=== PATIENT | female | born 1960 | race Caucasian/White ===

== ENCOUNTER 2018-10-20 08:00 | Outpatient (CLI) | payer BC, OTHER | END 2018-10-20 23:59 | disposition home or self-care (01) | LOC: LAB.R 08:00 | PROVIDERS: ATTEND Physician Assistant | DX: R31.9 Hematuria, unspecified (principal) | CPT/HCPCS: 87086; 87181 ==

== ENCOUNTER 2019-06-14 09:00 | Outpatient (CLI) | payer OTHER ==
[2019-06-14 18:57] LABS: ALBUMIN 4.1 g/dL (3.2-5.5); ALBUMIN/GLOBULIN RATIO 1.2 (1.0-2.2); ALKALINE PHOSPHATASE 77 IU/L (42-121); ALT ALANINE AMINOTRANSFERASE 20 IU/L (10-60); AST ASPARTATE AMINOTRANSFERASE 19 IU/L (10-42); BILIRUBIN,TOTAL 0.5 mg/dL (0.2-1.0); BUN - BLOOD UREA NITROGEN 14 mg/dL (6-20); CALCIUM 9.3 mg/dL (8.5-10.3); CARBON DIOXIDE - CO2 23 mmol/L (21-32); CHLORIDE 105 mmol/L (101-111); CHOL/HDL RATIO 4.4 (<4.4); CHOLESTEROL 209 mg/dL; CREATININE 0.8 mg/dL (0.4-1.0); GFR - MDRD 74 (>89); GLUCOSE 98 mg/dL (70-100); HDL CHOLESTEROL 48 mg/dL; LDL CHOLESTEROL,CALCULATED 139 mg/dL; LDL/HDL RATIO 2.9 (<4.4); SODIUM 137 mmol/L (135-145); TOTAL PROTEIN 7.4 g/dL (6.7-8.2); VLDL CHOLESTEROL 22 mg/dL
== END 2019-06-14 23:59 | disposition home or self-care (01) ==
LOC: LAB.WCP 09:00
PROVIDERS: ATTEND Family Medicine
DX: R03.0 Elevated blood-pressure reading, without diagnosis of hypertension (principal)
CPT/HCPCS: 36415; 80053; 80061; 83721

== ENCOUNTER 2019-07-22 07:00 | Outpatient (CLI) | payer BC | END 2019-07-22 23:59 | disposition home or self-care (01) | LOC: LAB.R 07:00 | PROVIDERS: ATTEND Family Medicine | DX: Z12.11 Encounter for screening for malignant neoplasm of colon (principal) | CPT/HCPCS: 82274 ==

== ENCOUNTER 2019-08-26 08:44 | Outpatient (CLI) | payer BC ==
--- NOTE | 2019-09-06 15:13 | Mammography Report ---
Reason: ROUTINE MAMMO Procedure Date: 08/26/2019 Accession Number: [id number] / [id number] Procedure: KEREN - Screening Mammo w/Jamal CPT Code: Final Report FULL RESULT: EXAM: Screening Mammo w/Jamal DATE: 08/26/2019 9:30 AM CLINICAL HISTORY: Screening encounter. History of late childbearing. TECHNIQUE: (B) - Bilateral CC and MLO views were obtained. COMPARISON: 07/08/2016 through 10/22/2010. PARENCHYMAL PATTERN: (A) - The breast(s) demonstrate(s) scattered fibroglandular densities. FINDINGS: There are no suspicious masses, calcifications, or areas of distortion. IMPRESSION: Negative examination. BI-RADS category 1. RECOMMENDATION: (ANNUAL) - Recommend routine annual screening mammography. BI-RADS CATEGORY: (1) - Negative. STANDARD QUALIFYING STATEMENTS: 1. This examination was not reviewed with the aid of Computer-Aided Detection (CAD). 2. A negative or benign imaging report should not preclude biopsy if clinically suspicious findings are present. 3. Dense breasts may obscure an underlying neoplasm. 4. This examination was reviewed with the aid of 3D breast imaging (tomosynthesis).
== END 2019-08-26 08:45 | disposition home or self-care (01) ==
LOC: DI 08:44
DX: Z12.31 Encounter for screening mammogram for malignant neoplasm of breast (principal)
CPT/HCPCS: 77063; 77067

== ENCOUNTER 2020-03-03 22:37 | Emergency (ER) | payer BC ==
--- NOTE | 2020-03-04 00:38 | ED Physician Documentation ---
History of Present Illness - Stated complaint Stated Complaint: LT SHOULDER/ARM PX - Chief complaint Chief Complaint: Trauma Ext - History obtained from History obtained from: Patient - Additonal information Additional information: Patient is a 59-year-old female who is right-hand dominant she slipped and fell on her left shoulder she denies any loss of consciousness or taking anticoagulants or antiplatelets or blood thinners denies any other complaints. Review of Systems Constitutional: reports: Reviewed and negative Eyes: reports: Reviewed and negative Ears: reports: Reviewed and negative Nose: reports: Reviewed and negative Throat: reports: Reviewed and negative Cardiac: reports: Reviewed and negative Respiratory: reports: Reviewed and negative GI: reports: Reviewed and negative : reports: Reviewed and negative Skin: reports: Reviewed and negative Musculoskeletal: reports: Extremity pain Neurologic: reports: Reviewed and negative Psychiatric: reports: Reviewed and negative Endocrine: reports: Reviewed and negative Immunocompromised: reports: Reviewed and negative PD PAST MEDICAL HISTORY - Allergies Allergies/Adverse Reactions: Allergies Allergy/AdvReac Type Severity Reaction Status Date / Time No Known Drug Allergies Allergy Verified 03/03/20 22:54 PD ED PE NORMAL - Vitals Vital signs reviewed: Yes - General General: Alert and oriented X 3, No acute distress - HEENT HEENT: PERRL - Neck Neck: Supple, no meningeal sign - Cardiac Cardiac: RRR, No murmur - Respiratory Respiratory: Clear bilaterally - Abdomen Abdomen: Normal bowel sounds, Soft, Non tender, Non distended - Derm Derm: Normal color, Warm and dry, No rash - Extremities Extremities: No deformity, No tenderness to palpate, Normal ROM s pain, No edema, No calf tenderness / cord - Neuro Neuro: Alert and oriented X 3, new account interviewer 2-12 intact, No motor deficit, No sensory deficit, Normal speech - Psych Psych: Normal mood, Normal affect - Free text exam Free text exam: Left upper extremity is without deformity there is no obvious sulcus sign of the left shoulder radian, median, ulnar motor and sensory exam are intact compartments are soft sensations intact light touch. Strength is 5 out of 5 in bilateral upper extremities. Full range of motion on passive and active range of motion of the left shoulder in flexion extension internal and external rotation and abduction and abduction sensations intact over the axilla able to flex and extend at the elbow without complications. There is no swelling no ecchymosis and no gross deformity neurovascular intact compartments soft radial pulses are 2+ and symmetric. Results - Vitals Vitals: Vital Signs - 24 hr 03/03/20 03/04/20 22:51 01:02 Temperature 36.4 C L Heart Rate 95 98 Respiratory 18 18 Rate Blood Pressure 156/100 H 146/86 H O2 Saturation 95 95 Oxygen O2 Source Room air PD MEDICAL DECISION MAKING - ED course Complexity details: re-evaluated patient, considered differential, d/w patient, d/w family ED course: Patient fell and landed on her left shoulder I did offer to order x-rays however she like to be discharged home. Her exam shows no signs of fracture or dislocation. She should ice at home take Tylenol or ibuprofen as needed and follow-up with her primary care provider on Thursday or return the emergency department any concerns. Departure - Departure Disposition: 01 Home, Self Care Clinical Impression: Sprain of left shoulder Qualifiers: Encounter type: initial encounter Shoulder sprain type: unspecified sprain Qualified Code(s): S43.402A - Unspecified sprain of left shoulder joint, initial encounter Condition: Stable Instructions: ED Sprain Shoulder Follow-Up: Ganesh Oh DO [Primary Care Provider] - 03/05/20 Comments: rest, ice and take ibuprofen as needed. Follow-up with your primary care provider on Thursday for recheck. Discharge Date/Time: 03/04/20 01:03
[2020-03-04 01:03] VITALS: BP 146/86
== END 2020-03-04 01:03 | disposition home or self-care (01) ==
LOC: ED 22:37
DX: S43.402A Unspecified sprain of left shoulder joint, initial encounter (principal); W01.0XXA Fall on same level from slipping, tripping and stumbling without subsequent striking against object, initial encounter
CPT/HCPCS: 99281; 99282

== ENCOUNTER 2023-09-16 11:06 | Outpatient (CLI) | payer OTHER ==
[2023-09-16 11:21] LABS: BASOPHILS # (AUTO) 0.1 10^3/uL (0.0-0.1); BASOPHILS % (AUTO) 0.8 %; EOSINOPHILS # (AUTO) 0.2 10^3/uL (0.0-0.7); EOSINOPHILS % (AUTO) 2.9 %; HCT - HEMATOCRIT 47.8 % (37.0-47.0); LYMPHOCYTES # (AUTO) 2.3 10^3/uL (1.5-3.5); LYMPHOCYTES % (AUTO) 30.2 %; MEAN CORPUSCULAR HGB CONC 31.4 g/dL (32.0-36.0); MEAN CORPUSCULAR VOLUME 79.8 fL (81.0-99.0); MONOCYTES # (AUTO) 0.5 10^3/uL (0.0-1.0); MONOCYTES % (AUTO) 6.1 %; NEUTROPHILS # (AUTO) 4.5 10^3/uL (1.5-6.6); NEUTROPHILS % (AUTO) 59.7 %; PLT - PLATELET COUNT 296 10^3/uL (130-450); RED BLOOD COUNT 5.99 10^6/uL (4.20-5.40); RED CELL DISTRIBUTION WIDTH 14.4 % (12.0-15.0); WHITE BLOOD COUNT 7.6 x10^3/uL (4.8-10.8)
[2023-09-16 11:29] LABS: ESTIMATED AVERAGE GLUCOSE 131 mg/dL (70-100); HEMOGLOBIN A1c% 6.2 % (4.27-6.07)
[2023-09-16 11:57] LABS: THYROID STIMULATING HORMONE 1.19 uIU/mL (0.34-5.60)
[2023-09-16 15:59] LABS: ALBUMIN 4.3 g/dL (3.2-5.5); ALBUMIN/GLOBULIN RATIO 1.2 (1.0-2.2); ALKALINE PHOSPHATASE 88 IU/L (42-121); ALT ALANINE AMINOTRANSFERASE 15 IU/L (10-60); AST ASPARTATE AMINOTRANSFERASE 14 IU/L (10-42); BILIRUBIN,TOTAL 0.3 mg/dL (0.2-1.0); BUN - BLOOD UREA NITROGEN 13 mg/dL (6-20); CALCIUM 9.9 mg/dL (8.5-10.3); CARBON DIOXIDE - CO2 24 mmol/L (21-32); CHLORIDE 105 mmol/L (101-111); CHOL/HDL RATIO 3.6 (<4.4); CHOLESTEROL 203 mg/dL; CREATININE 0.8 mg/dL (0.6-1.3); GFR - MDRD 73 (>89); GLUCOSE 99 mg/dL (74-104); HDL CHOLESTEROL 56 mg/dL; LDL CHOLESTEROL,CALCULATED 124 mg/dL; LDL/HDL RATIO 2.2 (<4.4); POTASSIUM 4.2 mmol/L (3.5-4.5); SODIUM 138 mmol/L (135-145); TOTAL PROTEIN 7.8 g/dL (6.4-8.9); TRIGLYCERIDES 116 mg/dL (48-352); VLDL CHOLESTEROL 23 mg/dL
== END 2023-09-16 11:07 | disposition home or self-care (01) ==
LOC: LAB 11:06
PROVIDERS: ATTEND Physician Assistant Medical
DX: Z13.9 Encounter for screening, unspecified (principal)
CPT/HCPCS: 36415; 80053; 80061; 83036; 83721; 84443; 85025

== ENCOUNTER 2023-10-02 09:30 | Outpatient (CLI) | payer OTHER ==
--- NOTE | 2023-10-02 10:56 | CT Report ---
PROCEDURE: Lung Cancer Screen INDICATIONS: SMOKER TECHNIQUE: A CT scan of the chest was performed. Intravenous contrast media was not administered. Images were re corded and evaluated at appropriate window settings. Reformats: axial MIP of the chest, coronal and s agittal. For radiation dose reduction, the following was used: automated exposure control, adjustment of mA and/or kV according to patient size. COMPARISON: None. FINDINGS: Image quality: Diagnostic, allowing for low radiation dose Lungs and pleura:Baseline lung cancer screening. Basal scarring and atelectasis is seen. No suspiciou s pulmonary nodules over 6 mm. Linear opacity is seen in the right upper lobe (/) measuring 9 x 3 mm. This may be within a small bronchus. Other micronodules under 3 mm and granulomas are seen. Mediastinum, heart, and esophagus: Normal heart size. No pathologic lymph nodes by size criteria. Chest wall and thyroid: Enlarged thyroid. Chest wall is unremarkable. Upper abdomen: No gross abnormality on this low-dose noncontrast images. Bones: No acute or suspicious osseous finding. IMPRESSION: Lung RADS 4A: Recommend 3 month follow-up low-dose CT. There is a possible linear opacity in the righ t lower lobe that may be within a small bronchus measuring 9 x 3 mm (8/93). Overall suspicion is low. Enlarged thyroid. Consider nonemergent sonographic follow-up. Reviewed by: Brock Fraser MD on 10/02/2023 10:55 AM PDT Approved by: Brock Fraser MD on 10/02/2023 10:55 AM PDT Station ID: [id number]
== END 2023-10-02 09:31 | disposition home or self-care (01) ==
LOC: DI 09:30
PROVIDERS: ATTEND Physician Assistant Medical
DX: Z12.2 Encounter for screening for malignant neoplasm of respiratory organs (principal); F17.210 Nicotine dependence, cigarettes, uncomplicated; E04.9 Nontoxic goiter, unspecified

== ENCOUNTER 2023-10-20 14:04 | Outpatient (CLI) | payer OTHER ==
--- NOTE | 2023-10-21 10:12 | Mammography Report ---
BILATERAL DIGITAL SCREENING MAMMOGRAM 3D/2D: 10/20/2023 CLINICAL: Routine screening. Comparison is made to exams dated: 10/24/2021 mammogram and 08/26/2019 mammogram - [facility]. Both breasts are almost entirely fatty (category a/<25% glandular tissue). No significant masses, calcifications, or other findings are seen in either breast. There has been no significant interval change. IMPRESSION: NEGATIVE There is no mammographic evidence of malignancy. A 1 year screening mammogram is recommended. Based on the Tyrer Cuzick model (a risk assessment model) the patient's lifetime risk is 5.2% and her 10 year risk is 2.2%. According to the ACR, ACS, and NCCN guidelines, an annual breast MRI exam chris g with mammogram is recommended if the patient's lifetime risk is 20% or greater. This exam was interpreted at Station ID: [id number]. NOTE: For mammograms, a report in lay terms will be sent to the patient. Approximately 15% of breast malignancies will not be visualized mammographically. In the management of a palpable breast mass, a negative mammogram must not discourage biopsy of a clinically suspicious lesion. Electronically Signed By: Kin fonseca/bon:10/20/2023 15:26:23 letter sent: No_Letter ACR BI-RADS Category 1: Negative 3341F PARENCHYMAL PATTERN: (F) - The breast(s) demonstrate(s) diffuse fatty replacement. BI-RADS CATEGORY: (1) - 1 RECOMMENDATION: (ANNUAL) - Recommend routine annual screening mammography. [id number] 1 year screening LATERALITY: (B)
== END 2023-10-20 14:05 | disposition home or self-care (01) ==
LOC: DI 14:04
PROVIDERS: ATTEND Physician Assistant Medical
DX: Z12.31 Encounter for screening mammogram for malignant neoplasm of breast (principal)

== ENCOUNTER 2023-10-22 11:03 | Outpatient (CLI) | payer OTHER ==
--- NOTE | 2023-10-22 11:38 | Ultrasound Report ---
PROCEDURE: Soft Tissue Head or Neck INDICATIONS: ENLARGED THYROID TECHNIQUE: Real-time scanning was performed of the thyroid gland, with image documentation. COMPARISON: None FINDINGS: Right: Thyroid lobe measures 5.8 x 3.5 x 2.4 cm, and is homogeneous in echotexture. Left: Thyroid lobe measures 6.0 x 3.2 x 3.6 cm, and is homogenous in echotexture. Isthmus: 0.9 cm thick. Nodule number: One Location: Right inferior Size: 2.3 x 2.5 x 2.3 cm. Composition: Solid (2 points). Echogenicity: Hyperechoic (1 point). Shape: wider than tall (0 points). Margins: Smooth (0 points). Echogenic foci: None (0 points). Total points: 3 ACR TI-RADS category: TI-RADS 3: Mildly suspicious. Nodule number: Two Location: Left inferior Size: 2.9 x 2.8 x 3.1 cm. Composition: Solid (2 points). Echogenicity: Hyperechoic (1 point). Shape: wider than tall (0 points). Margins: Smooth (0 points). Echogenic foci: None (0 points). Total points: 3 ACR TI-RADS category: TI-RADS 3: Mildly suspicious. Multiple additional subcentimeter nodules are present. IMPRESSION: Multinodular goiter with the largest nodules described above. Fine-needle aspiration for both of these nodules is recommended. ACR TI-RADS definitions and recommendations: TI-RADS 1 (benign): 0 points. FNA not needed. TI-RADS 2 (not suspicious): 2 points. FNA not needed. TI-RADS 3 (mildly suspicious): 3 points. "FNA if 2.5 cm or larger, follow up if 1.5 cm or larger (at 1, 3, and 5 years). TI-RADS 4 (moderately suspicious): 4-6 points. "FNA if 1.5 cm or larger, follow up if 1 cm or larger (at 1, 2, 3, and 5 years). TI-RADS 5 (highly suspicious): 7 points or more. "FNA if 1 cm or larger, follow up if 0.5 cm or larger (every year for 5 years). Reviewed by: Jefferson Logan MD on 10/22/2023 11:37 AM PDT Approved by: Jefferson Logan MD on 10/22/2023 11:37 AM PDT Station ID: [id number]
== END 2023-10-22 11:04 | disposition home or self-care (01) ==
LOC: DI 11:03
PROVIDERS: ATTEND Physician Assistant Medical
DX: E04.2 Nontoxic multinodular goiter (principal)

== ENCOUNTER 2023-11-12 09:47 | Outpatient (CLI) | payer OTHER ==
[~2023-11-12 09:47] MED LIST: LIDOCAINE-MPF 1% 5 ML VIAL ONE
[2023-11-12] MEDS: LIDOCAINE-MPF 1% 5 ML VIAL TD ONE (11:19)
--- NOTE | 2023-11-12 14:22 | Ultrasound Report ---
PROCEDURE: FNA Bx w/US Gdn 1st Les INDICATIONS: THYROID NODULE TECHNIQUE: The indications, alternatives, benefits, risks, and complications of the procedure were explained to the patient. Written informed consent was obtained and placed in the chart. The area of interest wa s examined sonographically and a site was chosen for ultrasound guided percutaneous sampling. Notably, the nodule as identified nodule #1 In the right thyroid could not be definitely discerned fr om rest of the multinodular thyroid; this nodule was not seen as described on ultrasound dated 10/22/19 24. Furthermore, multiple nodules were seen on the right, but not the 1 reaching 2.5 cm in size as de scribed on prior ultrasound dated 10/22/2023. Fine needle aspiration of this nodule could not be perfor med. Patient was explained that we could not find or needle aspirate this nodule as described on yolie or ultrasound dated 10/22/2023; patient agrees to go ahead with FNA of the left thyroid nodule. The skin was prepared and draped in the usual fashion, and anesthetized with 1% lidocaine infiltrated from the skin down to the lesion. Multiple passes were then performed, with contents emptied into a n appropriate pathology specimen container. A bandage was applied to the area of access at [facility] n of the study. COMPARISON: None. FINDINGS: Location(s) of lesion(s) sampled: Left thyroid nodule # 2. As described on prior ultrasound 10/22/2023 [place]: 25 gauge hypodermic needles. Number of passes: 6 Medications: 1% lidocaine for local anaesthesia. Complications: None. IMPRESSION: Successful ultrasound-guided left thyroid nodule fine needle aspiration, with cytology results kandy osorio Note: Right thyroid nodule as described on prior FNA dated 10/22/2023 was not sampled as noted above Reviewed by: Santiago Mason MD on 11/12/2023 2:20 PM PDT Approved by: Santiago Mason MD on 11/12/2023 2:20 PM PDT Station ID: [id number]
== END 2023-11-12 09:48 | disposition home or self-care (01) ==
LOC: DI 09:47
PROVIDERS: ATTEND Physician Assistant Medical
DX: E04.2 Nontoxic multinodular goiter (principal)
CPT/HCPCS: 10005

== ENCOUNTER 2024-01-11 13:29 | Outpatient (CLI) | payer OTHER ==
--- NOTE | 2024-01-11 15:55 | CT Report ---
PROCEDURE: Chest WO INDICATIONS: LUNG CONSOLIDATION TECHNIQUE: A CT scan of the chest was performed. Intravenous contrast media was not administered. Images were re corded and evaluated at appropriate window settings. Reformats: axial MIP of the chest, coronal and s agittal. For radiation dose reduction, the following was used: automated exposure control, adjustment of mA and/or kV according to patient size. COMPARISON: Chest CT 10/02/2023. FINDINGS: Image quality: Diagnostic. Chest wall and lower neck: No thyroid nodule which requires sonographic follow up. Thyroid is enlarge d. No axillary or supraclavicular adenopathy by size. Lungs and pleura: No consolidation. No pleural effusions. No pneumothorax. Grossly stable linear opa [place] within the right upper lobe () measuring approximately 9 x 3 mm. No new or enlarging pulmon ten nodules. Small ground glass opacity in the left upper lobe is similar to prior (11/13). Mediastinum: Heart size is normal. No pericardial effusion. No large vessel abnormality. No mediastin al adenopathy by size criteria. Bones: No aggressive osseous abnormality. Upper Abdomen: Unremarkable. IMPRESSION: Stable linear opacity in the right upper lobe measuring 9 x 3 mm, may be within a small bronchus or r epresent scarring. This is low suspicion based on its appearance. No new or enlarging pulmonary nodul es. Lung RADS 3: Recommend 6 month follow-up low-dose chest CT. Reviewed by: Jefferson Logan MD on 01/11/2024 3:53 PM PDT Approved by: Jefferson Logan MD on 01/11/2024 3:53 PM PDT Station ID: [id number]
== END 2024-01-11 13:30 | disposition home or self-care (01) ==
LOC: DI 13:29
PROVIDERS: ATTEND Registered Nurse
DX: J18.1 Lobar pneumonia, unspecified organism (principal)